=== PATIENT | female | born 1950 | race African-American/Black ===

== ENCOUNTER → 2019-06-27 | Outpatient (CLI) | payer BC | LOC: HYPER 08:27 | DX: T81.31XD Disruption of external operation (surgical) wound, not elsewhere classified, subsequent encounter (principal); L02.91 Cutaneous abscess, unspecified; L02.426 Furuncle of left lower limb; L03.116 Cellulitis of left lower limb; I10 Essential (primary) hypertension; F12.90 Cannabis use, unspecified, uncomplicated; Y83.8 Other surgical procedures as the cause of abnormal reaction of the patient, or of later complication, without mention of misadventure at the time of the procedure ==

== ENCOUNTER → 2019-07-11 | Outpatient (CLI) | payer BC | LOC: HYPER 08:03 | DX: T81.31XA Disruption of external operation (surgical) wound, not elsewhere classified, initial encounter (principal); L02.416 Cutaneous abscess of left lower limb; L02.426 Furuncle of left lower limb; L03.116 Cellulitis of left lower limb; I10 Essential (primary) hypertension; F17.290 Nicotine dependence, other tobacco product, uncomplicated; F12.90 Cannabis use, unspecified, uncomplicated; Y83.8 Other surgical procedures as the cause of abnormal reaction of the patient, or of later complication, without mention of misadventure at the time of the procedure ==